=== PATIENT | male | born 1945 | race Caucasian/White ===

== ENCOUNTER 2017-10-17 14:36 | Emergency (ER) | payer MEDICARE, OTHER ==
[2017-10-17] MEDS ORDERED: NORMAL SALINE 1,000 ML IV ONE (15:06)
[2017-10-17] MEDS ORDERED: KETOROLAC TROMETHAMINE 30 MG/ML VIAL IV ONE (15:07)
[2017-10-17 15:28] LABS: Hematocrit 40.9 % (42.0-52.0); Hemoglobin 13.4 gm/dL (13.5-18.0); Mean Corpuscular Hemoglobin 27.2 pg (27-31); Mean Corpuscular Hgb Conc 32.8 g/dl (32-36); Platelet Count 132 K/mm3 (150-450); Red Blood Count 4.93 M/mm3 (4.7-6.0); White Blood Count 27.5 K/mm3 (4.0-10.5)
[2017-10-17] MEDS ORDERED: KETOROLAC TROMETHAMINE 30 MG/ML VIAL ONE (15:29)
[2017-10-17 15:33] LABS: Total Cells Counted 100
[2017-10-17 15:45] LABS: ALT 28 U/L (19-67); AST 17 U/L (0-48); Alkaline Phosphatase * 123 U/L (50-170); Anion Gap 14.5 mmol/L (6.8-13.8); BUN/Creatinine Ratio 18.3 (9.0-21.6); Bilirubin, Total 0.2 mg/dL (0.0-1.1); Blood Urea Nitrogen 23 mg/dL (6-23); Ca. Corrected For Albumin 8.5 mg/dL (8.4-10.2); Calcium * 8.8 mg/dL (7.9-10.9); Carbon Dioxide 26.7 mmol/L (24-32.6); Chloride 104 mmol/L (97-106); Glucose * 163 mg/dL (70-110); Potassium 4.2 mmol/L (3.4-4.6); Sodium 141 mmol/L (132-142); Total Protein 7.7 gm/dL (6.2-8.2)
[2017-10-17 15:50] LABS: Troponin I Less than 0.017 ng/ml (0.00-0.10)
[2017-10-17 16:14] LABS: Atypical (Reactive) Lymph 4 % (0-2); Band 1 % (0-2.0); Lymphocyte 84 % (20-51); Monocyte 6 % (0-9); Neutrophil 5 % (42-75); Neutrophil # 1.4 K/mm3 (1.3-6.0)
[2017-10-17 16:21] LABS: Platelet Estimate Decreased (NORMAL)
[2017-10-17 16:33] LABS: Urine Bilirubin Negative (NEGATIVE); Urine Blood Negative /ul (NEGATIVE); Urine Ketone Negative (NEGATIVE); Urine Nitrite Negative (NEGATIVE); Urine Protein Negative (NEGATIVE); Urine Specific Gravity 1.015 SP.GR. (1.005-1.030); Urine Urobilinogen Normal (NORMAL)
[2017-10-17 16:42] LABS: Urine Appearance Clear; Urine Bacteria TRACE; Urine Color Yellow; Urine RBC None Seen /hpf (0-5); Urine WBC 0-5 /hpf (0-5)
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
[2017-10-17 17:46] VITALS: BP 137/81
== END 2017-10-17 17:41 | disposition home or self-care (01) ==
LOC: ER 14:36
DX: N39.0 Urinary tract infection, site not specified (principal); C91.10 Chronic lymphocytic leukemia of B-cell type not having achieved remission; E11.9 Type 2 diabetes mellitus without complications; Z79.4 Long term (current) use of insulin

== ENCOUNTER 2019-07-10 07:30 | Observation (INO) ==
[2019-07-10] MEDS ORDERED: DIPHTH,PERTUSS(ACELL),TET VAC 0.5 ML VIAL IM ONE (07:54)
[2019-07-10 08:02] LABS: Hematocrit 41.3 % (42.0-52.0); Hemoglobin 13.6 gm/dL (13.5-18.0); Mean Cell Volume 84.8 fl (78-100); Mean Corpuscular Hemoglobin 27.9 pg (27-31); Mean Corpuscular Hgb Conc 32.9 g/dl (32-36); Mean Platelet Volume 9.6 fl (8-11.3); Neutrophil # 5.8 K/mm3 (1.3-6.0); Neutrophil % 75.2 % (42-75.0); Platelet Count 217 K/mm3 (150-450); Red Blood Count 4.87 M/mm3 (4.7-6.0); Red Cell Distribution Width 15.8 % (11.5-14.0); White Blood Count 7.8 K/mm3 (4.0-10.5)
--- NOTE | 2019-07-10 08:11 | ERNOTE ---
<Jairo Milligan - Last Filed: 07/10/19 07:45> Head Injury HPI - General Injury to: head Time Seen by Provider: 07/10/19 07:39 Source: patient Exam Limitations: no limitations - Immun/Allergies/Home Medications Immunization: IMMUNIZATION HX Immunizations Up to Date Yes History of Influenza Vaccine Yes Hx Pneumococcal Vaccination Yes Allergies/Adverse Reactions: Allergies Allergy/AdvReac Type Severity Reaction Status Date / Time propranolol Allergy Unknown Verified 07/08/19 14:59 lisinopril AdvReac Mild Cough Verified 07/08/19 14:59 Home Medications: HOME MEDICATIONS Aripiprazole [Abilify] 2 mg PO DAILY 08/06/16 [Last Taken Unknown] Gabapentin [Neurontin] 300 mg PO TID 08/06/16 [Last Taken Unknown] Imipramine HCl [Tofranil] 50 mg PO HS 08/06/16 [Last Taken Unknown] Venlafaxine HCl [Effexor Xr] 150 mg PO DAILY cap.sr.24h 08/29/16 [Last Taken Unknown] vitamin B12 500 mcg-folic acid 400 mcg tablet 1 tab PO DAILY 03/31/18 [Last Taken Unknown] amlodipine 5 mg tablet 5 mg PO DAILY 04/16/18 [Last Taken Unknown] aspirin 81 mg tablet,delayed release 81 mg PO DAILY 04/16/18 [Last Taken Unknown] benzonatate 100 mg capsule 100 mg PO TID 04/16/18 [Last Taken Unknown] fluticasone propionate 50 mcg/actuation blister powder for inhalation 1 inh IH BID 04/16/18 [Last Taken Unknown] Clonazepam 1 mg PO BID #10 tab 05/08/18 [Last Taken Unknown] glimepiride 2 mg tablet 2 mg PO DAILY #90 tab 02/11/19 [Last Taken Unknown] simvastatin 40 mg tablet 40 mg PO QPM #30 tab 03/02/19 [Last Taken Unknown] omeprazole 20 mg capsule,delayed release 20 mg PO BID #60 cap 03/12/19 [Last Taken Unknown] ondansetron 8 mg disintegrating tablet 8 mg PO TID PRN #20 tab 03/23/19 [Last Taken Unknown] ibuprofen 400 mg tablet 400 mg PO Q6H PRN #120 tab 03/27/19 [Last Taken Unknown] methocarbamol 500 mg tablet 500 mg PO TID #90 tab 04/24/19 [Last Taken Unknown] flash glucose scanning reader See Dose Instructions .ROUTE .MEDSUPPLY #1 ea 05/21/19 [Last Taken Unknown] famotidine 40 mg tablet 40 mg PO BID #180 tab 05/25/19 [Last Taken Unknown] metformin 1,000 mg tablet 1,000 mg PO BID #180 tab 05/25/19 [Last Taken Unknown] Metoprolol Succinate [Toprol Xl] 25 mg PO DAILY #30 tab 06/02/19 [Last Taken Unknown] nitroglycerin 0.4 mg sublingual tablet 0.4 mg SL Q5-15M PRN #25 tab 06/05/19 [Last Taken Unknown] flash glucose sensor See Dose Instructions .ROUTE .MEDSUPPLY #2 ea 06/08/19 [Last Taken Unknown] apixaban 5 mg tablet 5 mg PO BID 06/23/19 [Last Taken Unknown] Levofloxacin [Levaquin] 500 mg PO DAILY 7 Days #7 tab 07/08/19 [Last Taken Unknown] - History of Present Illness Narrative: Patient lost his balance this morning fell striking his head. He has a small laceration on the posterior head which his cleaned up and is not bleeding upon presentation. Patient states he has been more off balance today than his usual. He denies loss of consciousness Occurred: just prior to arrival Location Occurred: home Severity: mild Head Injury Location: occipital Method of Injury: Reports: fell Reason for Fall: Reports: lost balance Loss of Consciousness: Reports: no loss of consciousness Associated Symptoms: Reports: neck pain Review of Systems - Review of Systems Constitutional: Present: recent illness - UTI, weakness, fatigue EYE: Absent: vision changes Respiratory: Absent: shortness of breath, cough Cardiology: Absent: chest pain, syncope Gastrointestinal/Abdominal: Absent: nausea, vomiting Musculoskeletal: Present: neck pain Skin: Present: lumps Neurological: Present: tremors Medical History (Last Reviewed 07/10/19 @ 08:04 by Jairo Milligan DO) Paroxysmal atrial flutter (Acute) Unstable angina (Acute) Sepsis (Chronic) UTI (urinary tract infection) (Acute) Tachycardia (Acute) Rate is about 144/min. 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) Chronic pain (Chronic) Onset Date: Unknown GERD (gastroesophageal reflux disease) (Acute) Onset Date: Unknown Anxiety (Acute) Onset Date: Unknown Paroxysmal vertigo (Chronic) Onset Date: Unknown Seborrheic dermatitis (Chronic) Onset Date: Unknown Leukemia (Acute) Onset Date: Unknown [facility] History of stroke (Resolved) Onset Date: Unknown Chronic renal failure (Chronic) Onset Date: Unknown Urinary retention due to benign prostatic hyperplasia (Chronic) Onset Date: Unknown History of stroke (Chronic) Onset Date: Unknown Tinea cruris (Chronic) Onset Date: Unknown Diabetes mellitus (Acute) Onset Date: Unknown Diabetes Hyperlipemia Leukemia Lower back pain ALTA (obstructive sleep apnea) Obesity Septicemia Onset Date: ~07/2017 UTI Anxiety Arthritis CVA (cerebral vascular accident) Chronic GERD Chronic kidney disease DJD (degenerative joint disease) Depression Hypertension Prostate enlargement Sleep apnea Cholelithiases Deviated septum Tension headache Atrial fibrillation and flutter (Inactive) Surgical History: Surgical History (Last Reviewed 07/10/19 @ 08:04 by Jairo Milligan DO) History of bladder surgery Onset Date: ~08/21/16 Prostate was notched per @ [facility] History of knee replacement Onset Date: ~08/20/16 Right total Knee arthroplasty; Removal of buried tibial nail with interlock screw. Dr. Padilla History of transurethral resection of prostate Onset Date: ~01/06/15 Hx of cholecystectomy Hx of colonoscopy Onset Date: ~07/01/15 History of carpal tunnel release History of tonsillectomy Family History: Family History (Last Reviewed 07/10/19 @ 08:04 by Jairo Milligan DO) Father , @ age 55 Anxiety Mother , in her 50s CVA (cerebral vascular accident) Other GERD (gastroesophageal reflux disease) Social History: (Last Reviewed 07/10/19 @ 08:04 by Jairo Milligan DO) Social History: Marital status: household members: spouse current occupational status: retired Highest education level completed: high school graduate Service: Yes branch: [employer] Tobacco: Smoking Status: Never smoker Alcohol: alcohol intake: former Substance Use: substance use type: does not use Dietary Habits: caffeine: Yes Physical Exam - Physical Exam General Appearance: Present: wd/wn, alert, mild distress Head Exam: Present: lacerations - upper occiput Eye Exam: PERRL: bilateral, EOMI: bilateral - some nystagmus to right Ears, Nose, Throat: Present: normal ENT inspection Neck: Present: limited range of motion, tender lateral Respiratory: Present: no respiratory distress, no accessory muscle use Cardiovascular/Chest: Present: tachycardia Back Exam: Present: normal inspection, no vertebral tenderness Extremity Exam: Present: normal inspection, normal range of motion, no edema Neurological Exam: Present: alert, oriented, normal mood/affect, no motor/sensory deficits Skin Exam: Present: normal color, warm/dry, other - 2 cm laceration occiput Lymphatic Exam: Present: no adenopathy Progress - Vital Signs Vital Signs: Vital Signs 07/10/19 07:30 Temperature 36.3 C Blood Pressure 103/64 - Transfer of Care Physician Sign Out: Jairo Milligan Receiving Physician: Nabor Witt Pending Results: CT/MRI results, Labs Expected Disposition: Discharge Departure Clinical Impression: Laceration, Atrial flutter with rapid ventricular response, Pneumonia, UTI (urinary tract infection), Sinusitis Head injury Qualifiers: Encounter type: initial encounter Qualified Code(s): S09.90XA - Unspecified injury of head, initial encounter - Departure Disposition: Still a patient Condition: Fair Referrals: Danny Vo DO [Primary Care Provider] - <Nabor Witt - Last Filed: 07/10/19 11:51> Head Injury HPI - Immun/Allergies/Home Medications Immunization: IMMUNIZATION HX Immunizations Up to Date Yes History of Influenza Vaccine Yes Hx Pneumococcal Vaccination Yes Medical History (Last Reviewed 07/10/19 @ 08:04 by Jairo Milligan DO) Paroxysmal atrial flutter (Acute) Unstable angina (Acute) Sepsis (Chronic) UTI (urinary tract infection) (Acute) Tachycardia (Acute) Rate is about 144/min. 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) Chronic pain (Chronic) Onset Date: Unknown GERD (gastroesophageal reflux disease) (Acute) Onset Date: Unknown Anxiety (Acute) Onset Date: Unknown Paroxysmal vertigo (Chronic) Onset Date: Unknown Seborrheic dermatitis (Chronic) Onset Date: Unknown Leukemia (Acute) Onset Date: Unknown [facility] History of stroke (Resolved) Onset Date: Unknown Chronic renal failure (Chronic) Onset Date: Unknown Urinary retention due to benign prostatic hyperplasia (Chronic) Onset Date: Unknown History of stroke (Chronic) Onset Date: Unknown Tinea cruris (Chronic) Onset Date: Unknown Diabetes mellitus (Acute) Onset Date: Unknown Diabetes Hyperlipemia Leukemia Lower back pain ALTA (obstructive sleep apnea) Obesity Septicemia Onset Date: ~07/2017 UTI Anxiety Arthritis CVA (cerebral vascular accident) Chronic GERD Chronic kidney disease DJD (degenerative joint disease) Depression Hypertension Prostate enlargement Sleep apnea Cholelithiases Deviated septum Tension headache Atrial fibrillation and flutter (Inactive) Surgical History: Surgical History (Last Reviewed 07/10/19 @ 08:04 by Jairo Milligan DO) History of bladder surgery Onset Date: ~08/21/16 Prostate was notched per @ [facility] History of knee replacement Onset Date: ~08/20/16 Right total Knee arthroplasty; Removal of buried tibial nail with interlock screw. Dr. Padilla History of transurethral resection of prostate Onset Date: ~01/06/15 Hx of cholecystectomy Hx of colonoscopy Onset Date: ~07/01/15 History of carpal tunnel release History of tonsillectomy Family History: Family History (Last Reviewed 07/10/19 @ 08:04 by Jairo Milligan DO) Father , @ age 55 Anxiety Mother , in her 50s CVA (cerebral vascular accident) Other GERD (gastroesophageal reflux disease) Social History: (Last Reviewed 07/10/19 @ 08:04 by Jairo Milligan DO) Social History: Marital status: household members: spouse current occupational status: retired Highest education level completed: high school graduate Service: Yes branch: [employer] Tobacco: Smoking Status: Never smoker Alcohol: alcohol intake: former Substance Use: substance use type: does not use Dietary Habits: caffeine: Yes Progress - Results and Orders Patient's Lab Results:: I have reviewed the patient's lab results. - Vital Signs Patient's Vital Signs:: I have reviewed the patient's vital signs. Vital Signs: Vital Signs 07/10/19 07:30 07/10/19 07:44 07/10/19 07:59 Temperature 36.3 C 36.3 C Pulse Rate 143 H 143 H 143 H Respiratory Rate 20 20 Blood Pressure 103/64 103/64 O2 Sat by Pulse Oximetry 95 95 07/10/19 08:01 07/10/19 08:14 07/10/19 08:39 Temperature Pulse Rate 143 H 133 H 135 H Respiratory Rate 18 Blood Pressure 110/65 113/79 O2 Sat by Pulse Oximetry 95 07/10/19 08:59 07/10/19 09:20 07/10/19 09:42 Temperature 36.3 C Pulse Rate 87 86 80 Respiratory Rate 15 15 24 H Blood Pressure 104/72 122/74 101/61 O2 Sat by Pulse Oximetry 94 97 95 07/10/19 10:00 07/10/19 10:15 07/10/19 10:19 Temperature Pulse Rate 90 142 H 133 H Respiratory Rate 18 20 Blood Pressure 95/53 98/53 96/53 O2 Sat by Pulse Oximetry 96 92 L - EKG EKG #1 EKG read: Interp. by me EKG Comments: A flutter vs sinus tachycardia rate 140. Non-specific ST/T wave changes, no STEMI noted EKG #2 EKG: NSR EKG read: Interp. by me EKG Comments: NSR rate 83. Non-specific ST/T wave changes, no STEMI noted - X-Ray X-Ray #1 X-Ray: chest Interpretation: Interp. by me X-ray Comments: I reviewed images as well as official radiology report - CT/Ultrasound CT/Ultrasound Narrative: I reviewed CT reports [place] CT head and C-spine - Progress/Reassessment Progress Note-Subjective: 07/10/19 11:45 I assumed care from Dr Milligan at 0800. Labs and imaging ordered and I reviewed those. He had A flutter and I gave 5 mg Cardizem and this slowed and converted him. Initially he wanted to go home. But then went back into a flutter with HR 140s again. Another dose of cardizem given and he again slowed and converted. Given this observation indicated. D/W Dr Vo who will admit. Patient agreeable. Please see Dr Milligan's note for full H&P. Procedures Right Parietal Length of Repair/Wound (cm): 2.5 Wound's Depth/Shape: into subcutaneous, irregular Wound Explored: clean, to base, no foreign body Wound Intervention: irrigated w/saline Distal NVT: neuro/vasc intact Wound Repaired With: janel Number of Sutures: 3 Layer Closure: Simple Estimated blood loss (ml): 0 Wound Dressing: sterile dressing applied Complications: Pt rob procedure well Immediate Post Procedure Note: 3 janel, no complications noted
[2019-07-10] MEDS ORDERED: NORMAL SALINE 1,000 ML IV ONE ×2 (08:17→10:01)
[2019-07-10 08:22] LABS: Albumin * 3.6 gm/dl (3.4-5.0); Anion Gap 15.9 mmol/L (6.8-13.8); BUN/Creatinine Ratio 12.8 (9.0-21.6); Bilirubin, Total 0.4 mg/dL (0.0-1.1); Ca. Corrected For Albumin 9.3 mg/dL (8.4-10.2); Calcium * 9.3 mg/dL (7.9-10.9); Carbon Dioxide 24.3 mmol/L (24-32.6); Potassium 4.2 mmol/L (3.4-4.6); Total Protein 7.3 gm/dL (6.2-8.2)
[2019-07-10] MEDS ORDERED: DILTIAZEM HCL 5 MG/ML VIAL IV ONE ×2 (08:23→10:14)
[2019-07-10] MEDS ORDERED: cefTRIAXone SODIUM 1,000 MG/100 ML BAG IV ONE (11:49)
[2019-07-10] MEDS ORDERED: AZITHROMYCIN 500 MG in DEXTROSE 5 % IN WATER 250 ML IV ONE ×2 (12:30)
--- NOTE | 2019-07-10 17:17 | HP ---
Chief Complaint - Chief Complaint Date of Service: 07/10/19 Time of Service: 13:30 Chief Complaint: cough, syncopal event, head laceration, a-fib with RVR History of Present Illness: Ervin Ansari is a 73-year-old male well-known to me who had a fall at home causing a 3 cm laceration to his occiput. Apparently he had a syncopal event that caused his fall. Evaluation in the emergency room found him to be in atrial fib with RVR with rates in the 1 60-1 70s range he was given Cardizem IV and it converted to normal sinus rhythm. In the course of his evaluation it discovered that he does have a pneumonia. He was treated on Saturday with antibiotics for this lung infection. Radiologist is calling pneumonia. While getting the antibiotics he went back in atrial fibrillation with RVR and was given another dose of Cardizem which reconverted him to normal sinus rhythm. He is in normal sinus rhythm at the time of my exam this afternoon. He does not appear to be in any distress while lying in bed. His lactic acid is elevated at 4.8. His blood sugars 190. Electrolytes are essentially normal. EGFR is 47 and there is not another one in the chart for comparison to know what his baseline is. Creatinine is 1.56. Medical History (Last Reviewed 07/10/19 @ 12:56 by Renetta Streeter RN) Paroxysmal atrial flutter (Acute) Unstable angina (Acute) Sepsis (Chronic) UTI (urinary tract infection) (Acute) Tachycardia (Acute) Rate is about 144/min. 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) Chronic pain (Chronic) Onset Date: Unknown GERD (gastroesophageal reflux disease) (Acute) Onset Date: Unknown Anxiety (Acute) Onset Date: Unknown Paroxysmal vertigo (Chronic) Onset Date: Unknown Seborrheic dermatitis (Chronic) Onset Date: Unknown Leukemia (Acute) Onset Date: Unknown [facility] History of stroke (Resolved) Onset Date: Unknown Chronic renal failure (Chronic) Onset Date: Unknown Urinary retention due to benign prostatic hyperplasia (Chronic) Onset Date: Unknown History of stroke (Chronic) Onset Date: Unknown Tinea cruris (Chronic) Onset Date: Unknown Diabetes mellitus (Acute) Onset Date: Unknown Diabetes Hyperlipemia Leukemia Lower back pain ALTA (obstructive sleep apnea) Obesity Septicemia Onset Date: ~07/2017 UTI Anxiety Arthritis CVA (cerebral vascular accident) Chronic GERD Chronic kidney disease DJD (degenerative joint disease) Depression Hypertension Prostate enlargement Sleep apnea Cholelithiases Deviated septum Tension headache Atrial fibrillation and flutter (Inactive) Surgical History: Surgical History (Last Reviewed 07/10/19 @ 08:04 by Jairo Milligan DO) History of bladder surgery Onset Date: ~08/21/16 Prostate was notched per @ [facility] History of knee replacement Onset Date: ~08/20/16 Right total Knee arthroplasty; Removal of buried tibial nail with interlock screw. Dr. Padilla History of transurethral resection of prostate Onset Date: ~01/06/15 Hx of cholecystectomy Hx of colonoscopy Onset Date: ~07/01/15 History of carpal tunnel release History of tonsillectomy Family History: Family History (Last Reviewed 07/10/19 @ 12:56 by Renetta Streeter RN) Father , @ age 55 Anxiety Mother , in her 50s CVA (cerebral vascular accident) Other GERD (gastroesophageal reflux disease) Social History: (Last Reviewed 07/10/19 @ 12:56 by Renetta Streeter RN) Social History: Marital status: household members: spouse current occupational status: retired Highest education level completed: high school graduate Service: Yes branch: [employer] Tobacco: Smoking Status: Never smoker Alcohol: alcohol intake: former Substance Use: substance use type: does not use Dietary Habits: caffeine: Yes Review Of Systems (GEN) - Review of Systems Generalized/Overall Review: Present: Weakness EENTM: Present: Other - Headache from striking the back of his head from a fall at home. Respiratory: Present: Cough, Shortness of Breath Cardiac: Present: Palpitations Abdominal: Present: No Symptoms Reported Genitourinary: Present: No Symptoms Reported Musculoskeletal: Present: No Symptoms Reported Neurological: Present: Weakness Skin: Present: No Symptoms Reported Endocrine: Present: No Symptoms Reported Immunizations: IMMUNIZATION HX Immunizations Up to Date Yes History of Influenza Vaccine Yes Hx Pneumococcal Vaccination Yes Allergies/Adverse Reactions: Allergies Allergy/AdvReac Type Severity Reaction Status Date / Time propranolol Allergy Unknown Verified 07/08/19 14:59 lisinopril AdvReac Mild Cough Verified 07/08/19 14:59 Home Medications: HOME MEDICATIONS Aripiprazole [Abilify] 2 mg PO DAILY 08/06/16 [Last Taken Unknown] Gabapentin [Neurontin] 300 mg PO TID 08/06/16 [Last Taken Unknown] Imipramine HCl [Tofranil] 50 mg PO HS 08/06/16 [Last Taken Unknown] Venlafaxine HCl [Effexor Xr] 150 mg PO DAILY cap.sr.24h 08/29/16 [Last Taken Unknown] vitamin B12 500 mcg-folic acid 400 mcg tablet 1 tab PO DAILY 03/31/18 [Last Taken Unknown] amlodipine 5 mg tablet 5 mg PO DAILY 04/16/18 [Last Taken Unknown] aspirin 81 mg tablet,delayed release 81 mg PO DAILY 04/16/18 [Last Taken Unknown] benzonatate 100 mg capsule 100 mg PO TID 04/16/18 [Last Taken Unknown] fluticasone propionate 50 mcg/actuation blister powder for inhalation 1 inh IH BID 04/16/18 [Last Taken Unknown] Clonazepam 1 mg PO BID #10 tab 05/08/18 [Last Taken Unknown] glimepiride 2 mg tablet 2 mg PO DAILY #90 tab 02/11/19 [Last Taken Unknown] simvastatin 40 mg tablet 40 mg PO QPM #30 tab 03/02/19 [Last Taken Unknown] omeprazole 20 mg capsule,delayed release 20 mg PO BID #60 cap 03/12/19 [Last Taken Unknown] ondansetron 8 mg disintegrating tablet 8 mg PO TID PRN #20 tab 03/23/19 [Last Taken Unknown] ibuprofen 400 mg tablet 400 mg PO Q6H PRN #120 tab 03/27/19 [Last Taken Unknown] methocarbamol 500 mg tablet 500 mg PO TID #90 tab 04/24/19 [Last Taken Unknown] flash glucose scanning reader See Dose Instructions .ROUTE .MEDSUPPLY #1 ea 05/21/19 [Last Taken Unknown] famotidine 40 mg tablet 40 mg PO BID #180 tab 05/25/19 [Last Taken Unknown] metformin 1,000 mg tablet 1,000 mg PO BID #180 tab 05/25/19 [Last Taken Unknown] Metoprolol Succinate [Toprol Xl] 25 mg PO DAILY #30 tab 06/02/19 [Last Taken Unknown] nitroglycerin 0.4 mg sublingual tablet 0.4 mg SL Q5-15M PRN #25 tab 06/05/19 [Last Taken Unknown] flash glucose sensor See Dose Instructions .ROUTE .MEDSUPPLY #2 ea 06/08/19 [Last Taken Unknown] apixaban 5 mg tablet 5 mg PO BID 06/23/19 [Last Taken Unknown] Levofloxacin [Levaquin] 500 mg PO DAILY 7 Days #7 tab 07/08/19 [Last Taken Unknown] Exam - Exam Vital Signs: Vital Signs - Last Taken Temp 36.6 C 07/10/19 12:27 Pulse 80 07/10/19 12:47 Resp 18 07/10/19 12:27 BP 128/69 07/10/19 12:27 Pulse Ox 97 07/10/19 12:27 Constitutional: Present: Alert, Oriented x3, Cooperative, Well developed, Well nourished, Mild distress, Elderly, Obese ENT Exam: Present: normal ENT inspection, hearing grossly normal, pharynx normal, TMs normal Eye Exam: bilateral eye: normal inspection, PERRL, EOMI Neck: Present: non-tender, supple, normal inspection, limited range of motion Back Exam: Present: normal inspection, no CVA tenderness, no vertebral tenderness Breasts: Present: Exam deferred Respiratory: Present: chest non-tender, rhonchi, wheezing, expiration (prolonged). Absent: crackles, rales, stridor Cardiovascular/Chest: Present: normal peripheral pulses, regular rate, rhythm - At this time. He is been in A. 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91 L (1.5-3.5) k/mm3 Anion Gap 15.9 H (6.8-13.8) mmol/L Creatinine 1.56 H (0.4-1.4) mg/dL Est GFR (Non-Af Amer) 47 L (60-130) mL/min Random Glucose 190 H D (70-110) mg/dL Lactic Acid, Venous 2.6 H* (0.4-2.0) mmol/L 07/10/19 Range/Units 11:25 Hct (42.0-52.0) % RDW (11.5-14.0) % Neutrophils % (42-75.0) % Lymphocytes % (20-51) % Monocytes % (0.0-9) % Lymphocytes # (1.5-3.5) k/mm3 Anion Gap (6.8-13.8) mmol/L Creatinine (0.4-1.4) mg/dL Est GFR (Non-Af Amer) (60-130) mL/min Random Glucose (70-110) mg/dL Lactic Acid, Venous 4.8 H* (0.4-2.0) mmol/L Laboratory Results WBC 7.8 K/mm3 (4.0-10.5) 07/10/19 07:59 RBC 4.87 M/mm3 (4.7-6.0) 07/10/19 07:59 Hgb 13.6 gm/dL (13.5-18.0) 07/10/19 07:59 Hct 41.3 % (42.0-52.0) L 07/10/19 07:59 MCV 84.8 fl (78-100) 07/10/19 07:59 MCH 27.9 pg (27-31) 07/10/19 07:59 MCHC 32.9 g/dl (32-36) 07/10/19 07:59 RDW 15.8 % (11.5-14.0) H 07/10/19 07:59 Plt Count 217 K/mm3 (150-450) 07/10/19 07:59 MPV 9.6 fl (8-11.3) 07/10/19 07:59 Immature Gran % (Auto) 0.30 % (0.001-0.429) 07/10/19 07:59 Immature Gran # (Auto) 0.02 K/mm3 (0.000-0.0310) 07/10/19 07:59 Neutrophils % 75.2 % (42-75.0) H 07/10/19 07:59 Lymphocytes % 11.7 % (20-51) L 07/10/19 07:59 Monocytes % 12.6 % (0.0-9) H 07/10/19 07:59 Eosinophils % 0.1 % (0.0-3.0) 07/10/19 07:59 Basophils % 0.1 % (0.0-1.0) 07/10/19 07:59 Nucleated RBC % 0.0 k/mm3 (0-1) 07/10/19 07:59 Neutrophils # 5.8 K/mm3 (1.3-6.0) 07/10/19 07:59 Lymphocytes # 0.91 k/mm3 (1.5-3.5) L 07/10/19 07:59 Monocytes # 1.0 k/mm3 (0.0-1.0) 07/10/19 07:59 Eosinophils # 0.0 k/mm3 (0.0-0.7) 07/10/19 07:59 Absolute Basophils 0.0 k/mm3 (0.0-0.1) 07/10/19 07:59 Sodium 138 mmol/L (132-142) 07/10/19 07:59 Plasma Sodium 139 mmol/L (130-142) 07/10/19 07:59 Potassium 4.2 mmol/L (3.4-4.6) 07/10/19 07:59 Chloride 102 mmol/L (97-106) 07/10/19 07:59 Carbon Dioxide 24.3 mmol/L (24-32.6) 07/10/19 07:59 Anion Gap 15.9 mmol/L (6.8-13.8) H 07/10/19 07:59 BUN 20 mg/dL (6-23) 07/10/19 07:59 Creatinine 1.56 mg/dL (0.4-1.4) H 07/10/19 07:59 Est GFR (Non-Af Amer) 47 mL/min (60-130) L 07/10/19 07:59 BUN/Creatinine Ratio 12.8 (9.0-21.6) 07/10/19 07:59 Random Glucose 190 mg/dL (70-110) H D 07/10/19 07:59 Lactic Acid, Venous 4.8 mmol/L (0.4-2.0) H* 07/10/19 11:25 Calcium 9.3 mg/dL (7.9-10.9) 07/10/19 07:59 Calcium Adj for Albumin 9.3 mg/dL (8.4-10.2) 07/10/19 07:59 Magnesium 1.9 mg/dL (1.2-2.8) 07/10/19 07:45 Total Bilirubin 0.4 mg/dL (0.0-1.1) 07/10/19 07:59 AST 20 U/L (0-48) 07/10/19 07:59 ALT 48 U/L (19-67) 07/10/19 07:59 Alkaline Phosphatase 123 U/L (50-170) 07/10/19 07:59 Troponin I 0.019 ng/mL (0.00-0.10) 07/10/19 10:17 Total Protein 7.3 gm/dL (6.2-8.2) 07/10/19 07:59 Albumin 3.6 gm/dl (3.4-5.0) 07/10/19 07:59 Assessment/Plan - Narrative Narrative: 1. Continuous cardiac monitoring 2. IV antibiotics 3. Intervene with Cardizem if needed for atrial fibrillation 4. Recheck morning lab 5. Dr. Wise to manage in my absence this weekend. Actually anticipate discharge tomorrow. - Assessment/Plan (1) Pneumonia Problem: Acute Qualifiers: Pneumonia type: due to unspecified organism Laterality: bilateral Lung location: lower lobe of lung Qualified Code(s): J18.9 - Pneumonia, unspecified organism (2) Syncope and collapse Problem: Acute (3) Paroxysmal atrial fibrillation with RVR Problem: Acute (4) Paroxysmal vertigo Problem: Chronic (5) Head injury Problem: Acute Qualifiers: Encounter type: subsequent encounter Qualified Code(s): S09.90XD - Unspecified injury of head, subsequent encounter
[2019-07-10] MEDS: IMIPRAMINE HCL 25 MG TABLET PO SCH (21:44)
[2019-07-11] MEDS: IMIPRAMINE HCL 25 MG TABLET PO SCH (08:45)
--- NOTE | 2019-07-11 10:03 | DS ---
(1) Atrial flutter with rapid ventricular response Problem: Resolved (2) Syncope and collapse Problem: Resolved (3) Urinary tract infection Problem: Acute Date of Discharge:: 07/11/19 Description of Stay: Ervin is a 73 yo male with UTI and paroxysmal atrial fibrillation who went into RVR with syncope and collapse. He was given diltiazem IV in the ER and converted to normal sinus rhythm. He has remained in normal sinus rhythm since arriving to the floor. He has a history of atrial fibrillation and is on eliquis for anticoagulation and metoprolol for rate control. He reports doing well and has no concerns. His is present and reports he is at his baseline. He feels ready to go home. He has recently been diagnosed with a UTI and is on antibiotics at home. I will plan to continue all current medications without change. He will continue to take his antibiotics until gone. Procedures Performed: none Results and Findings: Pending Mircobiology Results 07/10/19 07:48 Blood Blood Culture - Preliminary NO GROWTH 24 HOURS Lab Pending Results 07/10/19 07:45: Troponin I 0.028 07/10/19 07:45: Lactic Acid, Venous 2.6 H* 07/10/19 07:45: Magnesium 1.9 07/10/19 07:59: WBC 7.8, RBC 4.87, Hgb 13.6, Hct 41.3 L, MCV 84.8, MCH 27.9, MCHC 32.9, RDW 15.8 H, Plt Count 217, MPV 9.6, Immature Gran % (Auto) 0.30, Immature Gran # (Auto) 0.02, Neutrophils % 75.2 H, Lymphocytes % 11.7 L, Mon ocytes % 12.6 H, Eosinophils % 0.1, Basophils % 0.1, Nucleated RBC % 0.0, Neutrophils # 5.8, Lymphocytes # 0.91 L, Monocytes # 1.0, Eosinophils # 0.0, Absolute Basophils 0.0 07/10/19 07:59: Sodium 138, Plasma Sodium 139, Potassium 4.2, Chloride 102, Carbon Dioxide 24.3, Anion Gap 15.9 H, BUN 20, Creatinine 1.56 H, Est GFR (Non- Af Amer) 47 L, BUN/Creatinine Ratio 12.8, Random Glucose 190 H D, Calcium 9.3, Calcium Adj for Albumin 9.3, Total Bilirubin 0.4, AST 20, ALT 48, Alkaline Phosphatase 123, Total Protein 7.3, Albumin 3.6 07/10/19 10:17: Troponin I 0.019 07/10/19 11:25: Lactic Acid, Venous 4.8 H* Discharge Location: Home Disposition: Home self-care Condition: Fair Discharge Activity: Activity as tolerated Discharge Diet: General/regular food Referrals: Danny Vo DO [Primary Care Provider] - One Week Problem Oriented Discharge Instructions to Patient/Family: Atrial Fibrillation, [id number] Complete Home Medications List: Complete Home Medication List: Aripiprazole [Abilify] 2 mg PO DAILY 08/06/16 Gabapentin [Neurontin] 300 mg PO TID 08/06/16 Imipramine HCl [Tofranil] 50 mg PO HS 08/06/16 vitamin B12 500 mcg-folic acid 400 mcg tablet 1 tab PO DAILY 03/31/18 amlodipine 5 mg tablet 5 mg PO DAILY 04/16/18 aspirin 81 mg tablet,delayed release 81 mg PO DAILY 04/16/18 benzonatate 100 mg capsule 100 mg PO TID 04/16/18 fluticasone propionate 50 mcg/actuation blister powder for inhalation 1 inh IH BID 04/16/18 Clonazepam 1 mg PO BID #10 tab 05/08/18 glimepiride 2 mg tablet 2 mg PO DAILY #90 tab 02/11/19 simvastatin 40 mg tablet 40 mg PO QPM #30 tab 03/02/19 omeprazole 20 mg capsule,delayed release 20 mg PO BID #60 cap 03/12/19 ondansetron 8 mg disintegrating tablet 8 mg PO TID PRN #20 tab 03/23/19 ibuprofen 400 mg tablet 400 mg PO Q6H PRN #120 tab 03/27/19 methocarbamol 500 mg tablet 500 mg PO TID #90 tab 04/24/19 flash glucose scanning reader See Dose Instructions .ROUTE .MEDSUPPLY #1 ea 05/21/19 famotidine 40 mg tablet 40 mg PO BID #180 tab 05/25/19 metformin 1,000 mg tablet 1,000 mg PO BID #180 tab 05/25/19 Metoprolol Succinate [Toprol Xl] 25 mg PO DAILY #30 tab 06/02/19 nitroglycerin 0.4 mg sublingual tablet 0.4 mg SL Q5-15M PRN #25 tab 06/05/19 flash glucose sensor See Dose Instructions .ROUTE .MEDSUPPLY #2 ea 06/08/19 apixaban 5 mg tablet 5 mg PO BID 06/23/19 Levofloxacin [Levaquin] 500 mg PO DAILY 7 Days #7 tab 07/08/19 Methenamine Hippurate 1 gm PO BID 07/10/19 Venlafaxine HCl [Effexor Xr] 75 mg PO DAILY 07/10/19 Imipramine HCl [Tofranil] 50 mg PO DAILY tablet 07/11/19
[2019-07-11 11:24] VITALS: BP 144/74
== END 2019-07-11 12:25 | disposition home health service (06) ==
LOC: MS 07:30 → ER 07:30 → MS 11:25
PROVIDERS: ADMIT Family Medicine; ATTEND Family Medicine
CPT/HCPCS: 36415; 70450; 71020; 71046; 72125; 80053; 83605; 83735; 84484; 85025; 87040; 90471; 93005; 96365; 96367; 96375; 99285; G0378